=== PATIENT | female | born 1990 | race Caucasian/White ===

== ENCOUNTER 2020-04-01 12:07 | Emergency (ER) | payer MEDICAID ==
[~2020-04-01] VITALS: Ht 152.4 cm; Wt 51.7 kg
[2020-04-01 12:20] VITALS: Ht 152.4 cm; Wt 51.7 kg
[2020-04-01 13:53] LABS: BASOPHIL % 0.6 % (0-2); PLATELET COUNT 217 x10^3mcL (130-400); RED CELL DISTRIBUTION WIDTH 12.6 % (11.5-14.5)
[2020-04-01 15:24] VITALS: BP 110/66
== END 2020-04-01 15:24 | disposition home or self-care (01) ==
LOC: ED 12:07
PROVIDERS: Emergency Medicine
DX: O46.91 Antepartum hemorrhage, unspecified, first trimester (principal); Z3A.10 10 weeks gestation of pregnancy
CPT/HCPCS: Q0092